=== PATIENT | male | born 1985 | race Caucasian/White ===

== ENCOUNTER 2017-01-19 07:39 | Observation (INO) | payer OTHER ==
[2017-01-19] VITALS (10 sets, daily range): BP systolic 125–143; BP diastolic 64–84
[~2017-01-19] VITALS: Ht 190.5 cm; Wt 98.9 kg
[~2017-01-19 07:39] MED LIST: HYDROmorphone 2 MG/ML VIAL IV PRN; IBUP-1060 PO; IV RINGERS,LACTATED 1000ML 1,000 ML IV SCH; LIDOCAINE 1% PF 2 ML VIAL. ID PRN; MORPHINE SULFATE 4 MG/ML DISP.SYRIN. IV PRN; NAPR-695 PO; ONDANSETRON PF 4 MG/2 ML VIAL. IV PRN; PROCHLORPERAZINE 10 MG/2 ML VIAL. IV PRN; VENTOLIN HFA18 GM INH; fentaNYL PF VIAL 100 MCG/2 ML VIAL IV PRN
[2017-01-19] MEDS ORDERED: CLINDAMYCIN 900MG PREMIX 50 ML IV ONE (08:17)
[2017-01-19] MEDS ORDERED: CLINDAMYCIN 900MG PREMIX 50 ML IV PRN (08:30)
[2017-01-19] MEDS ORDERED: PROPOFOL 20 ML IV ONE ×2 (08:44→09:40)
[2017-01-19] MEDS ORDERED: SUCCINYLCHOLINE 200 MG/10 ML VIAL. ONE (08:44)
[2017-01-19] MEDS ORDERED: ROCURONIUM 50 MG/5 ML VIAL. ONE (08:44)
[2017-01-19] MEDS ORDERED: fentaNYL PF VIAL 100 MCG/2 ML VIAL ONE ×2 (08:44→09:40)
[2017-01-19] MEDS ORDERED: LIDOCAINE 2% PF Vial for OR 5 ML VIAL. ONE ×2 (08:44→12:10)
[2017-01-19] MEDS ORDERED: DEXAMETHASONE SOD PHOS 20 MG/5 ML VIAL. ONE (08:44)
[2017-01-19] MEDS ORDERED: ONDANSETRON PF 4 MG/2 ML VIAL. IV PRN (08:45)
[2017-01-19] MEDS ORDERED: oxyCODONE/APAP 5/325 1 TAB TABLET PO PRN ×2 (08:45)
[2017-01-19] MEDS: IV RINGERS,LACTATED 1000ML 1,000 ML IV SCH ×2 (08:45→18:24)
[2017-01-19] MEDS ORDERED: MIDAZOLAM HCL/PF 2 MG/2 ML VIAL. ONE (08:51)
[2017-01-19] MEDS ORDERED: LIDOCAINE 1%/EPI 1:100,000 20 ML VIAL. ONE (08:54)
[2017-01-19] MEDS ORDERED: EPINEPHrine VIAL 30 MG/30 ML VIAL ONE (08:55)
[2017-01-19] MEDS ORDERED: BACITRACIN/POLYMYXIN B OPHTH OINTMENT 3.5GM TUBE. ONE ×2 (08:56)
[2017-01-19] MEDS: MUPIROCIN 2 % NASAL OINTMENT 22GM TUBE. NS SCH ×3 (09:00→20:56)
[2017-01-19] MEDS ORDERED: GLYCOPYRROLATE 1 MG/5 ML VIAL. ONE (10:03)
[2017-01-19] MEDS ORDERED: PHENYLEPHRINE in 0.9% NACL PF 1 MG/10 ML DISP.SYRIN. IV ONE ×2 (10:37→11:14)
[2017-01-19] MEDS ORDERED: SEVOFLURANE > 120 MINUTES. IH ONE ×2 (10:37→11:44)
[2017-01-19] MEDS: fentaNYL PF VIAL 100 MCG/2 ML VIAL IV PRN ×2 (12:43→12:52)
--- NOTE | 2017-01-19 15:59 | OP ---
DATE OF SURGERY: 01/19/2017 PREOPERATIVE DIAGNOSIS: Papillary thyroid carcinoma. POSTOPERATIVE DIAGNOSIS: Papillary thyroid carcinoma. PROCEDURE PERFORMED: Total thyroidectomy. SURGEON: Christi Sotomayor MD [place] SCIENTIST: Shavon Yuan MD ANESTHESIA: General endotracheal anesthesia. INDICATIONS FOR SURGERY: The patient is a 31-year-old male with a history of right thyroid nodule that has been slowly enlarging over the past year. On fine-needle aspiration, this was found to be papillary thyroid carcinoma. Therefore, the decision was made for the patient to undergo the above procedure. After risks, benefits, and alternatives to surgery were thoroughly discussed with the patient, informed consent was obtained. ESTIMATED BLOOD LOSS: 100 mL. INTRAOPERATIVE FINDINGS: 1. A 2 cm hard nodule was present in the lateral aspect of the right thyroid isthmus. Remaining of the thyroid gland had a relatively normal appearance. 2. The bilateral recurrent laryngeal nerves were identified and intact at the end of the case and stimulated at 0.5 milliamps at the end of the case. 3. The right inferior parathyroid gland was identified and normal in appearance at the end of the case. DESCRIPTION OF THE PROCEDURE: The patient was brought to the operating room per anesthesia and intubated with a nerve integrity monitor, endotracheal tube in standard fashion. The patient was then turned 180 degrees in the room. The nerve integrity monitor was then set up and verified for accuracy. This was used throughout the case to protect the recurrent laryngeal nerves. A 5 cm incision was planned within the neck crease, approximately 2 fingerbreadths above the sternal notch. This was injected in subcutaneous fashion with 1% lidocaine with 1:100,000 epinephrine. The patient was then prepped and draped in standard fashion. A 15 blade was used to cut through the skin and subcutaneous tissue. Bovie electrocautery was used to cut through this platysmal layer. Subplatysmal flaps were then elevated superiorly, to the thyroid notch laterally, to the sternocleidomastoid muscles bilaterally and inferiorly to the sternal notch. A Weitlaner retractor was placed to retract the skin edges. The strap musculature was then identified at the midline. These were at the midline using Bovie electrocautery. I then dissected the strap musculature off the anterior surface of the right thyroid gland. I used [employer] retractors to retract the musculature away from the thyroid gland. I then used LigaSure as well as bipolar cautery to dissect these around the superior vascular supply away from the posterior aspect of the right thyroid gland. I also dissected around the lateral and inferior aspect of the thyroid gland in a similar fashion. The gland was then retracted medially. In doing so, I took care to identify the recurrent laryngeal nerve and traced it until I entered into the larynx with the cricothyroid notch. I then carefully used bipolar electrocautery to dissect the deep surface of the thyroid gland away from the recurrent laryngeal nerve. In doing so, I identified an inferior parathyroid tissue and this was carefully dissected away from the parathyroid gland. I also used bipolar as well as a 15 blade to dissect through the Banuelos's ligament. Once I was safely away from the recurrent laryngeal nerve, Bovie electrocautery was used to dissect the remaining thyroid gland away from the paratracheal tissue. My attention was then taken to the left thyroid gland. I again used Bovie electrocautery to dissect the strap musculature off the anterior surface of the thyroid gland. I then used LigaSure cautery to dissect around the superior pole of the left thyroid gland and then dissected the middle thyroid vein. I also dissected around the inferior aspect of the thyroid gland. I then retracted the gland medially. In doing so, the patient was found to have permanent ____ prominence and I carefully dissected around this. Once I dissected around the lateral aspect of this, I encountered the recurrent laryngeal nerve. I traced this until I entered into the larynx with the cricothyroid notch. I then carefully, using bipolar electrocautery, dissected the recurrent laryngeal nerve away from the undersurface of the thyroid gland. I used the bipolar electrocautery to dissect through the Banuelos's ligament as well as a 15 blade. Once I was safely away from the recurrent laryngeal nerve, I used a combination of LigaSure as well as Bovie electrocautery to dissect the remaining thyroid gland off the paratracheal tissue. The specimen was then fully removed from the thyroid gland. I inspected this on the backtable. There was a prominent hard nodule, approximately 2 cm in size, at the mid aspect of the right thyroid isthmus. There were no other nodules that could be palpated. There was evidence of attached parathyroid tissue. The surgical bed was then thoroughly irrigated and adequate hemostasis was confirmed using bipolar electrocautery. The recurrent laryngeal nerves were again identified bilaterally and stimulated at 0.5 milliamps at the end of the case. I also reevaluated the right inferior parathyroid tissue that was identified and this was slightly dusky, but had intact vascular supply. ____ was then placed within the surgical bed for hemostasis. A 7-Yakut flat fully fluted drain was placed within the surgical bed. This was brought through a stab incision to the right lateral aspect of our incision and sutured to the skin using 3-0 silk suture. The strap musculature was then closed with running suture of 3-0 Vicryl. The deep dermis and platysmal layers were closed with buried interrupted sutures of 4-0 Vicryl and the skin layer was closed with a running suture of 5-0 Prolene. Mupirocin ointment was placed along the incision. The patient was turned back over to anesthesia and extubated without complication. All sponge, needle and instrument counts were correct at the end of the case. COMPLICATIONS: None. DISPOSITION: Stable and transferred to recovery room. CHRISTI SOTOMAYOR MD DR: LINDA/jemima JOB#: [id number] / [id number]
[2017-01-19] MEDS: MORPHINE SULFATE 4 MG/ML DISP.SYRIN. IV PRN (20:23)
[2017-01-20] MEDS: MORPHINE SULFATE 4 MG/ML DISP.SYRIN. IV PRN ×3 (01:47→12:03)
[2017-01-20 02:14] LABS: PTH INTACT 16 pg/mL (15-65)
[2017-01-20 03:00] VITALS: BP 123/79
[2017-01-20] MEDS: IV RINGERS,LACTATED 1000ML 1,000 ML IV SCH (04:42)
[2017-01-20 05:21] LABS: CREATININE 0.9 mg/dL (0.7-1.3); GFR 97.2; MAGNESIUM 1.7 mg/dL (1.8-2.4); POTASSIUM 3.9 mmol/L (3.5-5.1)
[2017-01-20] MEDS ORDERED: CLINDAMYCIN 900MG PREMIX 50 ML IV PRN (06:00)
[2017-01-20 07:00] VITALS: BP 117/85
[2017-01-20] MEDS ORDERED: LEVOTHYROXINE 150 MCG TABLET PO SCH (07:00)
[2017-01-20] MEDS: MUPIROCIN 2 % NASAL OINTMENT 22GM TUBE. NS SCH (08:05)
[2017-01-20] MEDS ORDERED: LEVO150T PO (08:31)
[2017-01-20] MEDS ORDERED: CALC0.25 PO (08:31)
[2017-01-20] MEDS ORDERED: OXYC1TAB7 PO (08:31)
[2017-01-20] MEDS ORDERED: MUPI22OI2 NS (08:31)
[2017-01-20] MEDS ORDERED: CALC500T13 PO (08:31)
--- NOTE | 2017-01-20 08:58 | DISCH ---
DISCHARGE INSTRUCTIONS Condition on Discharge Condition on Discharge: Stable Activity After Discharge Lifting Instructions after Dis: Do not lift >10 pounds Wound Incision Care Wound/Incision Care: Ice to area for comfort, May get incision wet Wound Care Equipment: Sutures/landry Follow-Up Follow up with: Dr. Sotomayor at [phone] in 7-10 days Treatment/Equipment after DC Adaptive Equipment Issued: None BRITTANY SOTOMAYOR MD Jan 20, 2017 08:57
[2017-01-20] MEDS ORDERED: CALCITRIOL 0.25 MCG CAPSULE. PO SCH (09:00)
[2017-01-20 11:00] VITALS: BP 124/83
[2017-01-20] MEDS: CALCIUM CARBONATE 500 MG TABLET PO SCH ×2 (12:03→13:00)
--- NOTE | 2017-01-26 15:26 | PATHOLOGY ---
PATHOLOGY REPORT * * * * * * * * FINAL DIAGNOSIS: A. Thyroid gland, total thyroidectomy: - Papillary carcinoma of thyroid, POORLY DIFFERENTIATED, forming a tumor mass OF the thyroid isthmus measuring 2.0 cm in greatest dimension. - Tumor largely appears confined to thyroid with no definitive extrathyroidal tumor extension. - Tumor is less than 0.1 cm from the closest inked margin of resection. - Metastatic papillary carcinoma involving 1 of 2 pERIthyroidal lymph nodes of isthmic region (2). - Chronic lymphocytic thyroiditis. - No parathyroid glands identified. B. Lymph node, central neck lymph node: - Metastatic papillary carcinoma (03/05). (JPM:alcira/pit; 01/26/2017) Thyroid gland CLINICAL Clinical History: Other: Unknown. SPECIMEN Procedure: Total thyroidectomy TUMOR Histologic Type: Papillary carcinoma Tumor Size in Centimeters (cm): Greatest dimension in Centimeters (cm): 2.0 Tumor Site: Isthmus Tumor Focality: Unifocal Tumor Extent Extrathyroidal Extension: Not identified Accessory Findings Angioinvasion (vascular invasion): Not identified Lymphatic Invasion: Not identified Perineural Invasion: Not identified MARGINS Margins: Uninvolved by carcinoma Distance of Invasive Carcinoma from Closest Margin in Millimeters (mm): Specify in Millimeters (mm): 1 LYMPH NODES Regional Lymph Nodes: Number of Lymph Nodes Involved: Number of Lymph Nodes Involved: Specify number: 2 Specify Kenney Levels: Level - pretracheal, paratracheal and prelaryngeal / Delphian, perithyroidal (central compartment dissection) Size of Largest Metastatic Deposit in Centimeters (cm): Specify in Centimeters (cm): 0.7 Extranodal Extension (YOSELYN): Not identified Number of Lymph Nodes Examined: Specify number: 3 Specify Kenney Levels: Level - pretracheal, paratracheal and prelaryngeal / Delphian, perithyroidal (central compartment dissection) PATHOLOGIC STAGE CLASSIFICATION (PTNM, AJCC 8TH EDITION) Primary Tumor (pT): For Papillary, Follicular, Poorly Differentiated, Hurthle Cell and Anaplastic Thyroid Carcinoma Primary Tumor (pT): pT1b: Tumor > 1 cm but <= 2 cm in greatest dimension, limited to the thyroid Regional Lymph Nodes (pN): pN1a: Metastasis to level or VII (pretracheal, paratracheal, or prelaryngeal / Delphian, or upper mediastinal) lymph nodes. This can be unilateral or bilateral disease. ADDITIONAL FINDINGS Additional Pathologic Findings: Thyroiditis: Chronic lymphocytic thyroiditis. Parathyroid gland(s) Not present COMMENT: Sections of the tumor mass of the thyroid isthmus reveal a malignant epithelial neoplasm. The tumor cells are present in solid nests and also focally have a follicular architecture. The tumor cells have ample amounts of eosinophilic cytoplasm. The tumor cells possess enlarged, rounded to ovoid, focally pleomorphic, nuclei containing small nucleoli. The tumor cells focally have ground glass nuclei and nuclear grooves. Occasional intranuclear inclusions are noted. The tumor contains scattered psammomatous calcifications. The tumor largely appears confined to the thyroid with no definitive extrathyroidal tumor extension. There are two small perithyroidal lymph nodes in the isthmic region, one of which shows metastatic papillary carcinoma. The remaining thyroid shows chronic lymphocytic thyroiditis. A limited panel of immunoperoxidase stains of the thyroid tumor is obtained and yields the following results: - Thyroglobulin (A5): Tumor cells focally positive. - Calcitonin (A5): Tumor cells negative. The morphologic and immunophenotypic findings are supportive of the diagnosis of a poorly differentiated papillary carcinoma. Sections of the central neck lymph node show metastatic papillary carcinoma focally containing psammomatous calcifications. The case is also examined by Dr. Paul, who concurs with the diagnosis. (JPM:pit; 01/26/2017) Special stains performed: Immunoperoxidase for thyroglobulin and calcitonin obtained on A5. REPORT ELECTRONICALLY SIGNED BY: Antonio Pereira M.D. DATE/TIME: 01/26/2017 15:25 * * * * * * * * GROSS PATHOLOGY: A. Received in formalin labeled "Lyndon Adan, total thyroid" is a 26 g total thyroidectomy specimen. The right lobe measures 5.2 x 2.5 x 2.0 cm. The left lobe measures 4.3 x 2.8 x 2.2 cm. The isthmus measures 3.0 x 2.0 x 1.1 cm. The thyroid capsule appears intact and smooth, and is inked entirely black. The specimen is serially sectioned to reveal a zapata-white well-defined mass present in the isthmus measuring 2.0 x 1.8 x 1.2 cm. The mass grossly abuts the thyroid capsule. The remainder of the thyroid parenchyma is red-brown and homogeneous without additional nodules or masses present. Formulation Technician sections of the specimen are submitted as follows: A1 site safety representative superior left lobe A2 site safety representative inferior left lobe A3 site safety representative superior right lobe A4 site safety representative inferior right lobe A5-A8 site safety representative isthmus with mass B. Received in formalin labeled "Lyndon Adan, central neck lymph node" is a 1.5 x 0.8 x 0.4 cm portion of yellow-zapata fibroadipose tissue which has a 1.0 x 0.5 x 0.4 cm pink-zapata lymph node present. The specimen is bisected and submitted in cassette B1. ([facility] [place]; 01/21/2017) INITIAL CPT CODE(S): A; 90890, 96798, 65383, 47581 B; 31837 Professional services performed [place] [facility] [place] [address] Technical services performed by [facility] at [address] [place] [address]. Christi Sotomayor MD [phone] Dr. Thania Lyons Fax SPECIMEN(S) RECEIVED: A.Total thyroid B.Central neck lymph node CLINICAL HISTORY: Right thyroid nodule, FNA showed papillary thyroid ca PATIENT: AYELUCY JUNEAlpesh Ward /AGE: 508/01/1985 (Age: 31) PATIENT #: [id number] ALT CASE #: SPECIMEN COLLECTION DATE: 01/19/2017 SPECIMEN RECEIVED DATE: 01/19/2017 [facility] - [address] [place] [address] - PHONE: [phone] * * * END OF REPORT * * *
== END 2017-01-20 13:35 | disposition home or self-care (01) ==
LOC: SURG 07:39 → 4 NORTH 12:40
PROVIDERS: ADMIT Otolaryngology; ATTEND Otolaryngology
DX: C73 Malignant neoplasm of thyroid gland (principal)
CPT/HCPCS: 36415; 60240; 80048; 82310; 83735; 83970; 88307; 88341; 88342; 96374; 96376; C1769; G0378; G0379; J0171; J0330; J1100; J2250; J2270; J2370; J2704; J3010; J3490; J7120; J2001